=== PATIENT | male | born 1945 | race Caucasian/White ===

== ENCOUNTER 2020-09-16 08:29 | Inpatient (IN) ==
[2020-09-16] MEDS ORDERED: Azithromycin 500 MG in D5% in Water 250 ML IVPB ONE (08:57)
[2020-09-16] MEDS ORDERED: methylPREDNISolone 125 MG/2 ML VIAL IVP ONE (08:57)
[2020-09-16] MEDS ORDERED: 0.9 % Sodium Chloride 1,000 ML IVC SCH (09:00)
[2020-09-16 09:33] LABS: Basophils # 0.1 K/mcL (0.0-0.2); Basophils % 0.6 %; Eosinophils % 0.4 %; Hemoglobin 13.4 g/dL (12.9-16.9); Immature Granulocytes % 0.8 % (0-4); Lymphocytes # 1.6 K/mcL (0.6-4.6); Lymphocytes % 15.6 %; Mean Corpuscular HGB Conc 36.2 g/dL (31.6-35.5); Mean Corpuscular Hemoglobin 33.3 pg (28.0-33.3); Mean Platelet Volume 8.5 fL (9.4-12.4); Monocytes % 9.6 %; Neutrophils # 7.6 K/mcL (1.6-8.9); Platelet Count 197 K/mcL (140-400); Red Blood Count 4.02 M/mcL (4.19-5.50); White Blood Count 10.4 K/mcL (4.3-11.1)
[2020-09-16 09:43] LABS: INR 1.2; Prothrombin Time 14.2 Seconds (9.4-12.1)
[2020-09-16 09:46] LABS: Activated Partial Thrombo Time 34.1 Seconds (26.0-36.0)
[2020-09-16] MEDS ORDERED: Ipratropium/Albuterol Neb 3 ML IH ONE ×3 (09:49→13:11)
[2020-09-16 09:53] LABS: Troponin I < 0.03 ng/mL (< 0.04)
[2020-09-16 09:55] LABS: Alanine Aminotransferase 21 Units/L (7-52); Albumin 3.9 g/dL (3.5-5.7); Albumin/Globulin Ratio 1.6 (1.1-2.2); Alkaline Phosphatase 59 Units/L (34-104); Aspartate Amino Transferase 31 Units/L (13-39); BUN/Creatinine Ratio 23 (6-26); Bilirubin,Total 1.3 mg/dL (0.3-1.0); Blood Urea Nitrogen 14 mg/dL (8-23); Calcium 8.6 mg/dL (8.6-10.3); Carbon Dioxide 28 mEq/L (23-29); Chloride 80 mEq/L (98-107); Globulin 2.5 g/dL (2.4-3.5); Glucose 127 mg/dL (70-105); Osmolality,Calculated 250 (280-300); Potassium 4.5 mEq/L (3.5-5.1); Sodium 119 mEq/L (136-145); Total Protein 6.4 g/dL (6.4-8.9); eGFR For African Americans > 60 (> 60); eGFR For Non-African Americans > 60 (> 60)
[2020-09-16] MEDS ORDERED: Furosemide 40 MG/4 ML VIAL IVP ONE (09:59)
[2020-09-16] MEDS ORDERED: Naloxone 0.4 MG/ML INJ IVP PRN (10:44)
[2020-09-16] MEDS ORDERED: Ondansetron 4 MG/2 ML VIAL IVP PRN (10:44)
[2020-09-16] MEDS ORDERED: Fluticasone Propionate Nasal 50 MCG/SPRAY BOTTLE NS PRN (10:50)
[2020-09-16] MEDS ORDERED: Perflutren Lipid Microsphere 1.3 ML in 0.9 % Sodium Chloride 8.7 ML IVP PRN (10:51)
[2020-09-16] MEDS ORDERED: Nitroglycerin 0.4 MG TAB.SUBL SL PRN (10:51)
[2020-09-16] MEDS: MethylPREDNISolone 40 MG/ML VIAL IVP SCH ×2 (15:24→17:18)
[2020-09-16] MEDS: Ipratropium/Albuterol Neb 3 ML IH SCH ×2 (15:50→20:38)
[2020-09-16] MEDS: Furosemide 20 MG/2 ML VIAL IVP SCH (20:36)
[2020-09-16] MEDS: *HR* Dabigatran 75 MG CAPSULE PO SCH (20:36)
[2020-09-16] MEDS: Budesonide/Formoterol 160/4.5 1 PUFF INH IH SCH (20:39)
[2020-09-16] MEDS ORDERED: Furosemide 40 MG/4 ML VIAL IVP SCH (21:00)
[2020-09-17] MEDS: Ipratropium/Albuterol Neb 3 ML IH SCH ×6 (00:22→20:05)
[2020-09-17] MEDS: MethylPREDNISolone 40 MG/ML VIAL IVP SCH ×3 (02:05→13:04)
[2020-09-17 03:10] LABS: Hematocrit 35.9 % (37.5-50.1); Mean Corpuscular HGB Conc 36.2 g/dL (31.6-35.5); Mean Corpuscular Hemoglobin 33.3 pg (28.0-33.3); Mean Corpuscular Volume 92.1 fL (83.0-100.0); Mean Platelet Volume 8.4 fL (9.4-12.4); Platelet Count 178 K/mcL (140-400)
[2020-09-17] MEDS ORDERED: *HR* Metoprolol 5 MG/5 ML VIAL IVP ONE (05:42)
[2020-09-17 06:26] LABS: Alanine Aminotransferase 19 Units/L (7-52); Albumin 3.7 g/dL (3.5-5.7); Albumin/Globulin Ratio 1.5 (1.1-2.2); Alkaline Phosphatase 54 Units/L (34-104); Aspartate Amino Transferase 24 Units/L (13-39); BUN/Creatinine Ratio 22 (6-26); Bilirubin,Total 0.7 mg/dL (0.3-1.0); Blood Urea Nitrogen 16 mg/dL (8-23); Calcium 8.6 mg/dL (8.6-10.3); Carbon Dioxide 35 mEq/L (23-29); Chloride 86 mEq/L (98-107); Chol/HDL Ratio 1.6 (0-4.9); Cholesterol 118 mg/dL (< 200); Globulin 2.4 g/dL (2.4-3.5); Glucose 214 mg/dL (70-105); HDL Cholesterol 75 mg/dL (40-59); LDL Cholesterol,Calculated 35 mg/dL (< 100); Magnesium 1.6 mg/dL (1.6-2.6); Osmolality,Calculated 272 (280-300); Potassium 3.8 mEq/L (3.5-5.1); Sodium 127 mEq/L (136-145); Total Protein 6.1 g/dL (6.4-8.9); Triglycerides 40 mg/dL (< 150); eGFR For African Americans > 60 (> 60); eGFR For Non-African Americans > 60 (> 60)
[2020-09-17] MEDS: Budesonide/Formoterol 160/4.5 1 PUFF INH IH SCH ×2 (08:58→20:05)
[2020-09-17] MEDS: DilTIAZem CD (24hr) 240 MG CAP.ER.24H PO SCH (09:15)
[2020-09-17] MEDS: *HR* Dabigatran 75 MG CAPSULE PO SCH ×2 (09:15→20:48)
[2020-09-17] MEDS: Aspirin Enteric Coated 81 MG Tablet PO SCH (09:16)
[2020-09-17] MEDS: Metoprolol XL (24 HR) Succ 50 MG TAB.ER.24H PO SCH (09:16)
[2020-09-17] MEDS: Furosemide 20 MG/2 ML VIAL IVP SCH ×3 (09:16→21:13)
[2020-09-17] MEDS: Azithromycin 250 MG TABLET PO SCH (15:30)
[2020-09-17] MEDS: cefTRIAXone 1,000 MG in Water for inj. (sterile) 10 ML IVP SCH (15:30)
[2020-09-17] MEDS ORDERED: MethylPREDNISolone 40 MG/ML VIAL IVP SCH (16:00)
[2020-09-17 18:36] LABS: Adenovirus Not Detected (Not Detect); Bordetella Pertussis Not Detected (Not Detect); Chlamydophila pneumoniae Not Detected (Not Detect); Coronavirus 229E Not Detected (Not Detect); Coronavirus HKU1 Not Detected (Not Detect); Coronavirus NL63 Not Detected (Not Detect); Coronavirus OC43 Not Detected (Not Detect); Human Metapneumovirus Not Detected (Not Detect); Human Rhinovirus/Enterovirus Not Detected (Not Detect); Influenza A Subtype 2009 H1 Not Detected (Not Detect); Influenza B Not Detected (Not Detect); Mycoplasma pneumoniae Not Detected (Not Detect); Parainfluenza Virus 1 Not Detected (Not Detect); Parainfluenza Virus 2 Not Detected (Not Detect); Parainfluenza Virus 3 Not Detected (Not Detect); Parainfluenza Virus 4 Not Detected (Not Detect); Respiratory Syncytial Virus Not Detected (Not Detect); SARS-CoV-2 Not Detected (Not Detect)
[2020-09-18] MEDS: Ipratropium/Albuterol Neb 3 ML IH SCH ×6 (00:18→20:24)
[2020-09-18] MEDS: MethylPREDNISolone 40 MG/ML VIAL IVP SCH ×3 (01:16→17:03)
[2020-09-18 06:27] LABS: Hematocrit 35.8 % (37.5-50.1); Hemoglobin 12.3 g/dL (12.9-16.9); Mean Corpuscular HGB Conc 34.4 g/dL (31.6-35.5); Mean Corpuscular Hemoglobin 32.7 pg (28.0-33.3); Mean Corpuscular Volume 95.2 fL (83.0-100.0); Mean Platelet Volume 8.7 fL (9.4-12.4); Platelet Count 196 K/mcL (140-400); Red Blood Count 3.76 M/mcL (4.19-5.50); Red Cell Distribution Width 15.3 % (11.5-14.5); White Blood Count 10.4 K/mcL (4.3-11.1)
[2020-09-18 07:29] LABS: BUN/Creatinine Ratio 32 (6-26); Blood Urea Nitrogen 23 mg/dL (8-23); Calcium 8.6 mg/dL (8.6-10.3); Carbon Dioxide 33 mEq/L (23-29); Chloride 90 mEq/L (98-107); Glucose 205 mg/dL (70-105); Magnesium 1.7 mg/dL (1.6-2.6); Osmolality,Calculated 280 (280-300); Potassium 3.8 mEq/L (3.5-5.1); Sodium 130 mEq/L (136-145); eGFR For African Americans > 60 (> 60); eGFR For Non-African Americans > 60 (> 60)
[2020-09-18] MEDS: Budesonide/Formoterol 160/4.5 1 PUFF INH IH SCH ×2 (08:26→20:24)
[2020-09-18] MEDS: DilTIAZem CD (24hr) 240 MG CAP.ER.24H PO SCH (08:41)
[2020-09-18] MEDS: *HR* Dabigatran 75 MG CAPSULE PO SCH ×2 (08:41→22:21)
[2020-09-18] MEDS: Azithromycin 250 MG TABLET PO SCH (08:41)
[2020-09-18] MEDS: Aspirin Enteric Coated 81 MG Tablet PO SCH (08:41)
[2020-09-18] MEDS: Metoprolol XL (24 HR) Succ 50 MG TAB.ER.24H PO SCH (08:41)
[2020-09-18] MEDS: cefTRIAXone 1,000 MG in Water for inj. (sterile) 10 ML IVP SCH (09:29)
[2020-09-18] MEDS: Furosemide 20 MG/2 ML VIAL IVP SCH (09:29)
[2020-09-18] MEDS: Furosemide 20 MG TABLET PO SCH (16:55)
[2020-09-18] MEDS: Melatonin 3 MG TABLET PO PRN (22:21)
[2020-09-19] MEDS: Ipratropium/Albuterol Neb 3 ML IH SCH ×7 (00:15→23:42)
[2020-09-19] MEDS: MethylPREDNISolone 40 MG/ML VIAL IVP SCH ×2 (00:26→14:32)
[2020-09-19 06:33] LABS: Hematocrit 34.9 % (37.5-50.1); Hemoglobin 11.9 g/dL (12.9-16.9); Mean Corpuscular HGB Conc 34.1 g/dL (31.6-35.5); Mean Corpuscular Hemoglobin 33.1 pg (28.0-33.3); Mean Corpuscular Volume 97.2 fL (83.0-100.0); Mean Platelet Volume 8.6 fL (9.4-12.4); Platelet Count 207 K/mcL (140-400); Red Blood Count 3.59 M/mcL (4.19-5.50); Red Cell Distribution Width 15.3 % (11.5-14.5); White Blood Count 8.7 K/mcL (4.3-11.1)
[2020-09-19 07:02] LABS: Alanine Aminotransferase 58 Units/L (7-52); Albumin 3.8 g/dL (3.5-5.7); Albumin/Globulin Ratio 1.7 (1.1-2.2); Alkaline Phosphatase 40 Units/L (34-104); Aspartate Amino Transferase 56 Units/L (13-39); BUN/Creatinine Ratio 29 (6-26); Bilirubin,Total 0.5 mg/dL (0.3-1.0); Blood Urea Nitrogen 25 mg/dL (8-23); Calcium 8.6 mg/dL (8.6-10.3); Carbon Dioxide 34 mEq/L (23-29); Chloride 92 mEq/L (98-107); Globulin 2.3 g/dL (2.4-3.5); Glucose 251 mg/dL (70-105); Osmolality,Calculated 287 (280-300); Potassium 4.3 mEq/L (3.5-5.1); Sodium 132 mEq/L (136-145); Total Protein 6.1 g/dL (6.4-8.9); eGFR For African Americans > 60 (> 60); eGFR For Non-African Americans > 60 (> 60)
[2020-09-19] MEDS: Budesonide/Formoterol 160/4.5 1 PUFF INH IH SCH ×2 (09:54→20:02)
[2020-09-19] MEDS: *HR* Dabigatran 75 MG CAPSULE PO SCH ×2 (10:19→21:24)
[2020-09-19] MEDS: Azithromycin 250 MG TABLET PO SCH (10:20)
[2020-09-19] MEDS: Aspirin Enteric Coated 81 MG Tablet PO SCH (10:20)
[2020-09-19] MEDS: Furosemide 20 MG TABLET PO SCH ×2 (10:20→17:36)
[2020-09-19] MEDS: DilTIAZem CD (24hr) 240 MG CAP.ER.24H PO SCH (10:20)
[2020-09-19] MEDS: cefTRIAXone 1,000 MG in Water for inj. (sterile) 10 ML IVP SCH (10:20)
[2020-09-19] MEDS: Metoprolol XL (24 HR) Succ 50 MG TAB.ER.24H PO SCH (10:20)
[2020-09-19] MEDS: Melatonin 3 MG TABLET PO PRN (21:25)
[2020-09-20] MEDS: MethylPREDNISolone 40 MG/ML VIAL IVP SCH ×2 (02:03→13:42)
[2020-09-20] MEDS: Ipratropium/Albuterol Neb 3 ML IH SCH ×3 (03:41→11:03)
[2020-09-20 07:02] VITALS: BP 139/94
[2020-09-20] MEDS: Budesonide/Formoterol 160/4.5 1 PUFF INH IH SCH (07:45)
[2020-09-20] MEDS: *HR* Dabigatran 75 MG CAPSULE PO SCH (09:16)
[2020-09-20] MEDS: DilTIAZem CD (24hr) 240 MG CAP.ER.24H PO SCH (09:16)
[2020-09-20] MEDS: Aspirin Enteric Coated 81 MG Tablet PO SCH (09:17)
[2020-09-20] MEDS: Furosemide 20 MG TABLET PO SCH (09:17)
[2020-09-20] MEDS: Metoprolol XL (24 HR) Succ 50 MG TAB.ER.24H PO SCH (09:17)
[2020-09-20] MEDS: Azithromycin 250 MG TABLET PO SCH (09:17)
[2020-09-20] MEDS: cefTRIAXone 1,000 MG in Water for inj. (sterile) 10 ML IVP SCH (09:20)
[2020-09-21 11:46] LABS: ABG Base Excess 8 mEq/L (-2 to 3); ABG HCO3 35 mEq/L (21-27); ABG Oxygen Saturation 89 % (95-98); ABG PCO2 57 mmHg (35-45); ABG PH 7.39 pH Units (7.32-7.45); ABG PO2 58 mmHg (85-104); ABG TCO2 36 mEq/L (20-26)
== END 2020-09-20 14:37 | disposition other institution (70) | DRG 291 ==
LOC: EMEROOPIK 08:29 → INPPIK 08:29
PROVIDERS: ADMIT Family Medicine; ATTEND Family Medicine

== ENCOUNTER 2020-09-19 18:34 | Inpatient (IN) ==
[2020-09-20] MEDS ORDERED: NON-FORMULARY MEDICATION 1 EACH EACH (Ipratropium/Albuterol Sulfate 120 PUFF Inhaler) IH PRN (14:09)
[2020-09-20] MEDS ORDERED: MethylPREDNISolone 40 MG/ML VIAL IVP SCH (14:15)
[2020-09-20] MEDS: Ipratropium/Albuterol Neb 3 ML IH SCH ×3 (15:07→23:42)
[2020-09-20] MEDS: Budesonide/Formoterol 160/4.5 1 PUFF INH IH SCH (19:42)
[2020-09-20] MEDS: *HR* Dabigatran 75 MG CAPSULE PO SCH (21:56)
[2020-09-21] MEDS: MethylPREDNISolone 40 MG/ML VIAL IVP SCH ×2 (00:22→13:03)
[2020-09-21] MEDS: Ipratropium/Albuterol Neb 3 ML IH SCH ×5 (04:25→20:12)
[2020-09-21 07:40] LABS: Basophils % 0.5 %; Eosinophils % 0.3 %; Hematocrit 39.1 % (37.5-50.1); Hemoglobin 13.2 g/dL (12.9-16.9); Immature Granulocytes % 2.1 % (0-4); Lymphocytes # 0.8 K/mcL (0.6-4.6); Lymphocytes % 9.5 %; Mean Corpuscular HGB Conc 33.8 g/dL (31.6-35.5); Mean Corpuscular Hemoglobin 32.8 pg (28.0-33.3); Mean Corpuscular Volume 97.3 fL (83.0-100.0); Mean Platelet Volume 8.7 fL (9.4-12.4); Monocytes # 0.5 K/mcL (0.0-1.3); Monocytes % 5.6 %; Neutrophils # 6.5 K/mcL (1.6-8.9); Platelet Count 208 K/mcL (140-400); Red Blood Count 4.02 M/mcL (4.19-5.50); Red Cell Distribution Width 14.6 % (11.5-14.5)
[2020-09-21] MEDS: Budesonide/Formoterol 160/4.5 1 PUFF INH IH SCH ×2 (07:48→20:45)
[2020-09-21 07:59] LABS: BUN/Creatinine Ratio 36 (6-26); Blood Urea Nitrogen 27 mg/dL (8-23); Calcium 8.7 mg/dL (8.6-10.3); Carbon Dioxide 35 mEq/L (23-29); Chloride 90 mEq/L (98-107); Glucose 261 mg/dL (70-105); Osmolality,Calculated 284 (280-300); Sodium 130 mEq/L (136-145); eGFR For African Americans > 60 (> 60); eGFR For Non-African Americans > 60 (> 60)
[2020-09-21] MEDS: cefTRIAXone 1,000 MG in Water for inj. (sterile) 10 ML IVP SCH (08:40)
[2020-09-21] MEDS: Metoprolol XL (24 HR) Succ 50 MG TAB.ER.24H PO SCH (08:41)
[2020-09-21] MEDS: Furosemide 40 MG TABLET PO SCH (08:41)
[2020-09-21] MEDS: Azithromycin 250 MG TABLET PO SCH (08:41)
[2020-09-21] MEDS: Aspirin Enteric Coated 81 MG Tablet PO SCH (08:41)
[2020-09-21] MEDS: *HR* Dabigatran 75 MG CAPSULE PO SCH ×2 (08:41→20:51)
[2020-09-21] MEDS: DilTIAZem CD (24hr) 240 MG CAP.ER.24H PO SCH (08:41)
[2020-09-21] MEDS ORDERED: CefTRIAXone 1,000 MG VIAL IVP SCH (09:00)
[2020-09-22] MEDS: Ipratropium/Albuterol Neb 3 ML IH SCH ×7 (00:16→23:36)
[2020-09-22] MEDS: MethylPREDNISolone 40 MG/ML VIAL IVP SCH (00:42)
[2020-09-22] MEDS ORDERED: predniSONE 20 MG TABLET PO SCH (09:00)
[2020-09-22] MEDS: Azithromycin 250 MG TABLET PO SCH (10:33)
[2020-09-22] MEDS: Metoprolol XL (24 HR) Succ 50 MG TAB.ER.24H PO SCH (10:34)
[2020-09-22] MEDS: DilTIAZem CD (24hr) 240 MG CAP.ER.24H PO SCH (10:34)
[2020-09-22] MEDS: Aspirin Enteric Coated 81 MG Tablet PO SCH (10:34)
[2020-09-22] MEDS: Furosemide 40 MG TABLET PO SCH (10:34)
[2020-09-22] MEDS: *HR* Dabigatran 75 MG CAPSULE PO SCH ×2 (10:34→21:14)
[2020-09-22] MEDS: Budesonide/Formoterol 160/4.5 1 PUFF INH IH SCH ×2 (10:52→20:01)
[2020-09-22] MEDS: cefTRIAXone 1,000 MG in Water for inj. (sterile) 10 ML IVP SCH (17:48)
[2020-09-22] MEDS: Fluticasone Propionate Nasal 50 MCG/SPRAY BOTTLE NS PRN (21:18)
[2020-09-23] MEDS: Ipratropium/Albuterol Neb 3 ML IH SCH ×5 (04:05→21:15)
[2020-09-23] MEDS: Budesonide/Formoterol 160/4.5 1 PUFF INH IH SCH ×2 (07:40→21:15)
[2020-09-23] MEDS: Furosemide 40 MG TABLET PO SCH (08:37)
[2020-09-23] MEDS: Metoprolol XL (24 HR) Succ 50 MG TAB.ER.24H PO SCH (08:37)
[2020-09-23] MEDS: *HR* Dabigatran 75 MG CAPSULE PO SCH ×2 (08:37→21:23)
[2020-09-23] MEDS: DilTIAZem CD (24hr) 240 MG CAP.ER.24H PO SCH (08:37)
[2020-09-23] MEDS: predniSONE 10 MG TABLET PO SCH (08:37)
[2020-09-23] MEDS: Aspirin Enteric Coated 81 MG Tablet PO SCH (08:37)
[2020-09-24] MEDS: Ipratropium/Albuterol Neb 3 ML IH SCH ×4 (03:35→21:33)
[2020-09-24] MEDS: Budesonide/Formoterol 160/4.5 1 PUFF INH IH SCH ×2 (08:14→21:33)
[2020-09-24] MEDS: Albuterol 2.5 MG/3 ML NEBULIZER IH PRN ×2 (08:14→11:22)
[2020-09-24] MEDS: Aspirin Enteric Coated 81 MG Tablet PO SCH (09:58)
[2020-09-24] MEDS: *HR* Dabigatran 75 MG CAPSULE PO SCH ×2 (09:58→20:18)
[2020-09-24] MEDS: Furosemide 40 MG TABLET PO SCH (09:58)
[2020-09-24] MEDS: DilTIAZem CD (24hr) 240 MG CAP.ER.24H PO SCH (09:58)
[2020-09-24] MEDS: predniSONE 10 MG TABLET PO SCH (09:59)
[2020-09-24] MEDS: Metoprolol XL (24 HR) Succ 50 MG TAB.ER.24H PO SCH (09:59)
[2020-09-25] MEDS: Albuterol 2.5 MG/3 ML NEBULIZER IH PRN ×2 (01:23→20:01)
[2020-09-25] MEDS: Ipratropium/Albuterol Neb 3 ML IH SCH ×4 (04:33→21:54)
[2020-09-25] MEDS: Budesonide/Formoterol 160/4.5 1 PUFF INH IH SCH ×2 (09:08→21:54)
[2020-09-25] MEDS: Aspirin Enteric Coated 81 MG Tablet PO SCH (10:22)
[2020-09-25] MEDS: *HR* Dabigatran 75 MG CAPSULE PO SCH ×2 (10:22→19:53)
[2020-09-25] MEDS: Furosemide 40 MG TABLET PO SCH (10:23)
[2020-09-25] MEDS: predniSONE 20 MG TABLET PO SCH (10:23)
[2020-09-25] MEDS: DilTIAZem CD (24hr) 240 MG CAP.ER.24H PO SCH (10:23)
[2020-09-25] MEDS: Metoprolol XL (24 HR) Succ 50 MG TAB.ER.24H PO SCH (10:23)
[2020-09-25 12:03] LABS: ABG Base Excess 9 mEq/L (-2 to 3); ABG HCO3 35 mEq/L (21-27); ABG Oxygen Saturation 95 % (95-98); ABG PCO2 52 mmHg (35-45); ABG PH 7.44 pH Units (7.32-7.45); ABG PO2 73 mmHg (85-104); ABG TCO2 37 mEq/L (20-26); Blood Gas Modality NIV; Blood Gas Pressure Support 14 cm H2O
[2020-09-26] MEDS: Ipratropium/Albuterol Neb 3 ML IH SCH ×4 (04:20→21:28)
[2020-09-26] MEDS: *HR* Dabigatran 75 MG CAPSULE PO SCH ×2 (10:15→20:29)
[2020-09-26] MEDS: Aspirin Enteric Coated 81 MG Tablet PO SCH (10:15)
[2020-09-26] MEDS: DilTIAZem CD (24hr) 240 MG CAP.ER.24H PO SCH (10:15)
[2020-09-26] MEDS: predniSONE 20 MG TABLET PO SCH (10:15)
[2020-09-26] MEDS: Furosemide 40 MG TABLET PO SCH (10:16)
[2020-09-26] MEDS: Metoprolol XL (24 HR) Succ 50 MG TAB.ER.24H PO SCH (10:16)
[2020-09-26] MEDS: Budesonide/Formoterol 160/4.5 1 PUFF INH IH SCH ×2 (10:16→21:28)
[2020-09-26] MEDS: Albuterol 2.5 MG/3 ML NEBULIZER IH PRN (14:25)
[2020-09-27] MEDS: Ipratropium/Albuterol Neb 3 ML IH SCH ×4 (04:34→20:56)
[2020-09-27] MEDS: Budesonide/Formoterol 160/4.5 1 PUFF INH IH SCH ×2 (09:06→20:56)
[2020-09-27] MEDS: predniSONE 10 MG TABLET PO SCH (10:16)
[2020-09-27] MEDS: DilTIAZem CD (24hr) 240 MG CAP.ER.24H PO SCH (10:16)
[2020-09-27] MEDS: Furosemide 40 MG TABLET PO SCH (10:16)
[2020-09-27] MEDS: Aspirin Enteric Coated 81 MG Tablet PO SCH (10:16)
[2020-09-27] MEDS: Metoprolol XL (24 HR) Succ 50 MG TAB.ER.24H PO SCH (10:16)
[2020-09-27] MEDS: *HR* Dabigatran 75 MG CAPSULE PO SCH ×2 (10:16→21:13)
[2020-09-27] MEDS: Fluticasone Propionate Nasal 50 MCG/SPRAY BOTTLE NS PRN (21:13)
[2020-09-28] MEDS: Ipratropium/Albuterol Neb 3 ML IH SCH ×2 (03:30→10:18)
[2020-09-28 07:35] VITALS: BP 139/86
[2020-09-28] MEDS: *HR* Dabigatran 75 MG CAPSULE PO SCH (10:08)
[2020-09-28] MEDS: Aspirin Enteric Coated 81 MG Tablet PO SCH (10:08)
[2020-09-28] MEDS: Furosemide 40 MG TABLET PO SCH (10:08)
[2020-09-28] MEDS: Metoprolol XL (24 HR) Succ 50 MG TAB.ER.24H PO SCH (10:08)
[2020-09-28] MEDS: DilTIAZem CD (24hr) 240 MG CAP.ER.24H PO SCH (10:08)
[2020-09-28] MEDS: predniSONE 10 MG TABLET PO SCH (10:17)
[2020-09-28] MEDS: Budesonide/Formoterol 160/4.5 1 PUFF INH IH SCH (10:18)
== END 2020-09-28 12:15 | disposition home health service (06) | DRG 945 ==
LOC: INPPIK 09-20 14:46
PROVIDERS: ADMIT Family Medicine; ATTEND Family Medicine

== ENCOUNTER 2020-10-30 02:51 | Inpatient (IN) ==
[2020-10-30] MEDS ORDERED: Ipratropium/Albuterol Neb 3 ML IH ONE (02:56)
[2020-10-30] MEDS ORDERED: methylPREDNISolone 125 MG/2 ML VIAL IVP ONE (02:56)
[2020-10-30] MEDS ORDERED: 0.9 % Sodium Chloride 1,000 ML IVC ONE (02:56)
[2020-10-30 03:26] LABS: Basophils # 0.1 K/mcL (0.0-0.2); Basophils % 0.9 %; Eosinophils # 0.1 K/mcL (0.0-0.6); Eosinophils % 0.5 %; Hematocrit 42.7 % (37.5-50.1); Hemoglobin 14.4 g/dL (12.9-16.9); Lymphocytes # 4.1 K/mcL (0.6-4.6); Lymphocytes % 27.4 %; Mean Corpuscular HGB Conc 33.7 g/dL (31.6-35.5); Mean Corpuscular Hemoglobin 31.8 pg (28.0-33.3); Mean Corpuscular Volume 94.3 fL (83.0-100.0); Mean Platelet Volume 8.9 fL (9.4-12.4); Monocytes # 0.8 K/mcL (0.0-1.3); Monocytes % 5.4 %; Neutrophils # 9.8 K/mcL (1.6-8.9); Platelet Count 291 K/mcL (140-400); Red Blood Count 4.53 M/mcL (4.19-5.50); Red Cell Distribution Width 13.5 % (11.5-14.5); Segmented Neutrophils % 64.8 %; White Blood Count 15.1 K/mcL (4.3-11.1)
[2020-10-30 04:12] LABS: BUN/Creatinine Ratio 9 (6-26); Blood Urea Nitrogen 11 mg/dL (8-23); Calcium 9.4 mg/dL (8.6-10.3); Carbon Dioxide 28 mEq/L (23-29); Chloride 94 mEq/L (98-107); Glucose 134 mg/dL (70-105); Osmolality,Calculated 277 (280-300); Potassium 5.2 mEq/L (3.5-5.1); Sodium 133 mEq/L (136-145); eGFR For African Americans > 60 (> 60); eGFR For Non-African Americans 55 (> 60)
[2020-10-30] MEDS ORDERED: Isovue-370 500 ML BOTTLE IVP ONE (05:54)
[2020-10-30] MEDS ORDERED: levoFLOXacin 750 MG/150 ML 750 MG/150 ML BAG IVPB ONE (07:09)
[2020-10-30] MEDS ORDERED: Furosemide 40 MG/4 ML VIAL IVP ONE (07:16)
[2020-10-30] MEDS ORDERED: Piperacillin/Tazobactam 3.375 GM in Water for inj. (sterile) 20 ML IVP ONE (07:27)
[2020-10-30 07:38] LABS: ABG Base Excess -1 mEq/L (-2 to 3); ABG HCO3 26 mEq/L (21-27); ABG Oxygen Saturation 94 % (95-98); ABG PCO2 50 mmHg (35-45); ABG PH 7.32 pH Units (7.32-7.45); ABG PO2 79 mmHg (85-104); ABG TCO2 27 mEq/L (20-26)
[2020-10-30] MEDS ORDERED: MOM Conc 10 ML UD.LIQ PO PRN (07:59)
[2020-10-30] MEDS ORDERED: Mag Hydrox/Al Hydrox/Simeth 30 ML UDC PO PRN (07:59)
[2020-10-30] MEDS ORDERED: Naloxone 0.4 MG/ML INJ IVP PRN (07:59)
[2020-10-30] MEDS ORDERED: Ondansetron 4 MG/2 ML VIAL IVP PRN (07:59)
[2020-10-30] MEDS ORDERED: Fluticasone Propionate Nasal 50 MCG/SPRAY BOTTLE NS PRN (08:08)
[2020-10-30] MEDS ORDERED: DilTIAZem CD (24hr) 240 MG CAP.ER.24H PO SCH (09:00)
[2020-10-30] MEDS ORDERED: Metoprolol XL (24 HR) Succ 50 MG TAB.ER.24H PO SCH (09:00)
[2020-10-30] MEDS: Aspirin Enteric Coated 81 MG Tablet PO SCH (10:17)
[2020-10-30] MEDS: *HR* Dabigatran 75 MG CAPSULE PO SCH ×2 (10:17→19:50)
[2020-10-30] MEDS: Furosemide 20 MG/2 ML VIAL IVP SCH ×2 (10:17→19:56)
[2020-10-30] MEDS: Budesonide/Formoterol 160/4.5 1 PUFF INH IH SCH ×2 (10:28→20:06)
[2020-10-30] MEDS: Ipratropium/Albuterol Neb 3 ML IH SCH ×3 (12:25→20:06)
[2020-10-30] MEDS ORDERED: *HR* LORazepam 2 MG/ML VIAL IVP PRN ×2 (13:56)
[2020-10-30] MEDS: Piperacillin/Tazobactam 3.375 GM in 0.9 % Sodium Chloride Mini Bag 100 ML IVPB SCH (17:15)
[2020-10-30] MEDS: MethylPREDNISolone 40 MG/ML VIAL IVP SCH (17:16)
[2020-10-31] MEDS: MethylPREDNISolone 40 MG/ML VIAL IVP SCH ×3 (00:02→16:25)
[2020-10-31] MEDS: Piperacillin/Tazobactam 3.375 GM in 0.9 % Sodium Chloride Mini Bag 100 ML IVPB SCH ×3 (00:03→16:27)
[2020-10-31] MEDS: Ipratropium/Albuterol Neb 3 ML IH SCH ×6 (00:15→21:00)
[2020-10-31 04:38] LABS: Basophils % 0.1 %; Hematocrit 35.1 % (37.5-50.1); Hemoglobin 12.2 g/dL (12.9-16.9); Immature Granulocytes % 0.6 % (0-4); Lymphocytes # 1.4 K/mcL (0.6-4.6); Mean Corpuscular HGB Conc 34.8 g/dL (31.6-35.5); Mean Corpuscular Hemoglobin 31.8 pg (28.0-33.3); Mean Corpuscular Volume 91.4 fL (83.0-100.0); Mean Platelet Volume 8.8 fL (9.4-12.4); Monocytes # 0.2 K/mcL (0.0-1.3); Monocytes % 2.4 %; Neutrophils # 6.2 K/mcL (1.6-8.9); Platelet Count 215 K/mcL (140-400); Red Blood Count 3.84 M/mcL (4.19-5.50); Red Cell Distribution Width 13.1 % (11.5-14.5); Segmented Neutrophils % 78.9 %; White Blood Count 7.9 K/mcL (4.3-11.1)
[2020-10-31 07:49] LABS: BUN/Creatinine Ratio 26 (6-26); Blood Urea Nitrogen 22 mg/dL (8-23); Calcium 8.8 mg/dL (8.6-10.3); Carbon Dioxide 30 mEq/L (23-29); Chloride 94 mEq/L (98-107); Glucose 209 mg/dL (70-105); Osmolality,Calculated 287 (280-300); Sodium 134 mEq/L (136-145); eGFR For African Americans > 60 (> 60); eGFR For Non-African Americans > 60 (> 60)
[2020-10-31] MEDS: Budesonide/Formoterol 160/4.5 1 PUFF INH IH SCH ×2 (08:20→21:00)
[2020-10-31] MEDS: Metoprolol XL (24 HR) Succ 50 MG TAB.ER.24H PO SCH (08:49)
[2020-10-31] MEDS: *HR* Dabigatran 75 MG CAPSULE PO SCH ×2 (08:49→22:02)
[2020-10-31] MEDS: Aspirin Enteric Coated 81 MG Tablet PO SCH (08:50)
[2020-10-31] MEDS: Furosemide 20 MG/2 ML VIAL IVP SCH ×2 (08:50→22:02)
[2020-10-31] MEDS: Acetaminophen 325 MG TABLET PO PRN (16:34)
[2020-11-01] MEDS: MethylPREDNISolone 40 MG/ML VIAL IVP SCH ×3 (00:26→16:34)
[2020-11-01] MEDS: Piperacillin/Tazobactam 3.375 GM in 0.9 % Sodium Chloride Mini Bag 100 ML IVPB SCH ×3 (00:27→16:34)
[2020-11-01] MEDS: Ipratropium/Albuterol Neb 3 ML IH SCH ×4 (01:52→12:58)
[2020-11-01] MEDS: Budesonide/Formoterol 160/4.5 1 PUFF INH IH SCH ×2 (07:43→21:58)
[2020-11-01] MEDS: Furosemide 20 MG/2 ML VIAL IVP SCH ×2 (07:53→21:00)
[2020-11-01] MEDS: Metoprolol XL (24 HR) Succ 50 MG TAB.ER.24H PO SCH (07:54)
[2020-11-01] MEDS: *HR* Dabigatran 75 MG CAPSULE PO SCH ×2 (07:54→20:50)
[2020-11-01] MEDS: Aspirin Enteric Coated 81 MG Tablet PO SCH (07:54)
[2020-11-01] MEDS ORDERED: *HR* Dextrose 50 % in Water (Vial) 50 ML VIAL IVP PRN (18:02)
[2020-11-01] MEDS ORDERED: Dextrose Gel 15 GM/37.5 ML TUBE PO PRN ×2 (18:02)
[2020-11-01] MEDS ORDERED: D5% in Water 1,000 ML IVC PRN (18:02)
[2020-11-01] MEDS: Insulin LISPRO 300 UNITS/3 ML VIAL SUBQ SCH ×2 (18:16→20:52)
[2020-11-01] MEDS: Ipratropium/Albuterol Neb 3 ML IH PRN ×2 (18:39→21:58)
[2020-11-02] MEDS ORDERED: 0.9 % Sodium Chloride Mini Bag 100 ML ONE (00:35)
[2020-11-02] MEDS: MethylPREDNISolone 40 MG/ML VIAL IVP SCH ×3 (00:42→17:38)
[2020-11-02] MEDS: Piperacillin/Tazobactam 3.375 GM in 0.9 % Sodium Chloride Mini Bag 100 ML IVPB SCH ×4 (00:42→17:39)
[2020-11-02] MEDS: Ipratropium/Albuterol Neb 3 ML IH PRN ×5 (02:36→20:03)
[2020-11-02] MEDS: Budesonide/Formoterol 160/4.5 1 PUFF INH IH SCH ×2 (07:38→20:06)
[2020-11-02 07:43] LABS: Hematocrit 36.1 % (37.5-50.1); Hemoglobin 12.5 g/dL (12.9-16.9); Mean Corpuscular HGB Conc 34.6 g/dL (31.6-35.5); Mean Corpuscular Hemoglobin 31.7 pg (28.0-33.3); Mean Corpuscular Volume 91.6 fL (83.0-100.0); Mean Platelet Volume 9.1 fL (9.4-12.4); Platelet Count 220 K/mcL (140-400); Red Blood Count 3.94 M/mcL (4.19-5.50); Red Cell Distribution Width 12.9 % (11.5-14.5); White Blood Count 10.2 K/mcL (4.3-11.1)
[2020-11-02 08:04] LABS: BUN/Creatinine Ratio 39 (6-26); Blood Urea Nitrogen 22 mg/dL (8-23); Calcium 8.3 mg/dL (8.6-10.3); Carbon Dioxide 34 mEq/L (23-29); Chloride 94 mEq/L (98-107); Glucose 174 mg/dL (70-105); Osmolality,Calculated 286 (280-300); Potassium 3.6 mEq/L (3.5-5.1); Sodium 134 mEq/L (136-145); eGFR For African Americans > 60 (> 60); eGFR For Non-African Americans > 60 (> 60)
[2020-11-02] MEDS ORDERED: Furosemide 20 MG/2 ML VIAL IVP SCH (08:15)
[2020-11-02] MEDS: Metoprolol XL (24 HR) Succ 50 MG TAB.ER.24H PO SCH (08:49)
[2020-11-02] MEDS: *HR* Dabigatran 75 MG CAPSULE PO SCH ×2 (08:49→22:15)
[2020-11-02] MEDS: Acetaminophen 325 MG TABLET PO PRN (08:49)
[2020-11-02] MEDS: Aspirin Enteric Coated 81 MG Tablet PO SCH (08:49)
[2020-11-02] MEDS: Insulin LISPRO 300 UNITS/3 ML VIAL SUBQ SCH ×4 (08:51→22:42)
[2020-11-03] MEDS: Piperacillin/Tazobactam 3.375 GM in 0.9 % Sodium Chloride Mini Bag 100 ML IVPB SCH ×3 (00:10→15:34)
[2020-11-03] MEDS: MethylPREDNISolone 40 MG/ML VIAL IVP SCH ×3 (00:22→15:31)
[2020-11-03] MEDS: Ipratropium/Albuterol Neb 3 ML IH PRN ×5 (01:11→17:20)
[2020-11-03] MEDS: Budesonide/Formoterol 160/4.5 1 PUFF INH IH SCH (08:02)
[2020-11-03] MEDS ORDERED: Furosemide 40 MG TABLET PO SCH (09:00)
[2020-11-03] MEDS: Metoprolol XL (24 HR) Succ 50 MG TAB.ER.24H PO SCH (09:07)
[2020-11-03] MEDS: *HR* Dabigatran 75 MG CAPSULE PO SCH (09:07)
[2020-11-03] MEDS: Aspirin Enteric Coated 81 MG Tablet PO SCH (09:07)
[2020-11-03] MEDS: Insulin LISPRO 300 UNITS/3 ML VIAL SUBQ SCH ×3 (09:09→17:34)
[2020-11-03 12:28] VITALS: RESP 20
[2020-11-03 16:54] VITALS: BP 138/88; PULSE 116; TEMP 97.2
[2020-11-03 18:13] VITALS: O2SAT 96
== END 2020-11-03 19:24 | disposition other institution (70) | DRG 871 ==
LOC: INPPIK 02:51 → EMEROOPIK 02:51 → INPPIK 08:11
PROVIDERS: ADMIT Family Medicine; ATTEND Family Medicine

== ENCOUNTER 2020-11-03 16:20 | Inpatient (IN) ==
[2020-11-03] MEDS ORDERED: Ondansetron ODT 4 MG TAB.RAPDIS SL PRN (16:51)
[2020-11-03] MEDS ORDERED: Fluticasone Propionate Nasal 50 MCG/SPRAY BOTTLE NS PRN (16:52)
[2020-11-03] MEDS: *HR* Dabigatran 75 MG CAPSULE PO SCH (20:27)
[2020-11-03] MEDS: Budesonide/Formoterol 160/4.5 1 PUFF INH IH SCH (21:13)
[2020-11-03] MEDS: Ipratropium/Albuterol Neb 3 ML IH PRN (21:14)
[2020-11-04] MEDS: Ipratropium/Albuterol Neb 3 ML IH PRN ×6 (02:05→23:02)
[2020-11-04 07:25] LABS: Basophils # 0.1 K/mcL (0.0-0.2); Basophils % 0.5 %; Hematocrit 42.5 % (37.5-50.1); Hemoglobin 14.1 g/dL (12.9-16.9); Immature Granulocytes % 1.6 % (0-4); Lymphocytes # 3.1 K/mcL (0.6-4.6); Lymphocytes % 21.9 %; Mean Corpuscular HGB Conc 33.2 g/dL (31.6-35.5); Mean Corpuscular Hemoglobin 31.4 pg (28.0-33.3); Mean Corpuscular Volume 94.7 fL (83.0-100.0); Mean Platelet Volume 9.3 fL (9.4-12.4); Monocytes % 8.8 %; Neutrophils # 9.5 K/mcL (1.6-8.9); Platelet Count 225 K/mcL (140-400); Red Blood Count 4.49 M/mcL (4.19-5.50); Red Cell Distribution Width 12.9 % (11.5-14.5); Segmented Neutrophils % 67.2 %; White Blood Count 14.1 K/mcL (4.3-11.1)
[2020-11-04] MEDS: Budesonide/Formoterol 160/4.5 1 PUFF INH IH SCH ×2 (07:34→20:12)
[2020-11-04 08:03] LABS: Monocytes # 1.2 K/mcL (0.0-1.3)
[2020-11-04 08:13] LABS: BUN/Creatinine Ratio 41 (6-26); Blood Urea Nitrogen 31 mg/dL (8-23); Calcium 8.6 mg/dL (8.6-10.3); Carbon Dioxide 32 mEq/L (23-29); Chloride 94 mEq/L (98-107); Glucose 189 mg/dL (70-105); Osmolality,Calculated 290 (280-300); Potassium 4.2 mEq/L (3.5-5.1); Sodium 134 mEq/L (136-145); eGFR For African Americans > 60 (> 60); eGFR For Non-African Americans > 60 (> 60)
[2020-11-04] MEDS: levoFLOXacin 750 MG TABLET PO SCH (10:49)
[2020-11-04] MEDS: Aspirin Enteric Coated 81 MG Tablet PO SCH (10:49)
[2020-11-04] MEDS: predniSONE 20 MG TABLET PO SCH (10:49)
[2020-11-04] MEDS: *HR* Dabigatran 75 MG CAPSULE PO SCH ×2 (10:49→20:52)
[2020-11-04] MEDS: Metoprolol XL (24 HR) Succ 50 MG TAB.ER.24H PO SCH (10:49)
[2020-11-04] MEDS: DilTIAZem CD (24hr) 240 MG CAP.ER.24H PO SCH (10:49)
[2020-11-04] MEDS: Furosemide 40 MG TABLET PO SCH (10:50)
[2020-11-04] MEDS: Acetaminophen 325 MG TABLET PO PRN (21:02)
[2020-11-05] MEDS: Ipratropium/Albuterol Neb 3 ML IH PRN ×4 (04:18→19:38)
[2020-11-05 06:07] LABS: Hematocrit 37.6 % (37.5-50.1); Hemoglobin 12.6 g/dL (12.9-16.9); Mean Corpuscular HGB Conc 33.5 g/dL (31.6-35.5); Mean Corpuscular Hemoglobin 31.4 pg (28.0-33.3); Mean Corpuscular Volume 93.8 fL (83.0-100.0); Mean Platelet Volume 9.2 fL (9.4-12.4); Platelet Count 211 K/mcL (140-400); Red Blood Count 4.01 M/mcL (4.19-5.50)
[2020-11-05] MEDS: Budesonide/Formoterol 160/4.5 1 PUFF INH IH SCH ×2 (08:00→19:38)
[2020-11-05 08:29] VITALS: RESP 20
[2020-11-05] MEDS: *HR* Dabigatran 75 MG CAPSULE PO SCH ×2 (08:52→20:53)
[2020-11-05] MEDS: predniSONE 20 MG TABLET PO SCH (08:53)
[2020-11-05] MEDS: Metoprolol XL (24 HR) Succ 50 MG TAB.ER.24H PO SCH (08:53)
[2020-11-05] MEDS: levoFLOXacin 750 MG TABLET PO SCH (08:53)
[2020-11-05] MEDS: DilTIAZem CD (24hr) 240 MG CAP.ER.24H PO SCH (08:53)
[2020-11-05] MEDS: Furosemide 40 MG TABLET PO SCH (08:53)
[2020-11-05] MEDS: Acetaminophen 325 MG TABLET PO PRN (08:53)
[2020-11-05] MEDS: Aspirin Enteric Coated 81 MG Tablet PO SCH (08:54)
[2020-11-05 12:18] LABS: Estimated Average Glucose 143 mg/dl; Hemoglobin A1C 6.6 %
[2020-11-05 19:21] VITALS: BP 100/73; PULSE 47; TEMP 97.5
[2020-11-05 21:11] VITALS: O2SAT 85
[2020-11-05 21:14] LABS: BUN/Creatinine Ratio 37 (6-26); Blood Urea Nitrogen 37 mg/dL (8-23); Calcium 8.7 mg/dL (8.6-10.3); Carbon Dioxide 31 mEq/L (23-29); Chloride 92 mEq/L (98-107); Glucose 284 mg/dL (70-105); Osmolality,Calculated 291 (280-300); Potassium 5.2 mEq/L (3.5-5.1); Sodium 131 mEq/L (136-145); eGFR For African Americans > 60 (> 60); eGFR For Non-African Americans > 60 (> 60)
== END 2020-11-05 22:35 | disposition short-term general hospital (02) | DRG 190 ==
LOC: INPPIK 19:01
PROVIDERS: ADMIT Family Medicine; ATTEND Family Medicine

== ENCOUNTER 2020-12-25 16:44 | Inpatient (IN) ==
[2020-12-25] MEDS ORDERED: Ipratropium/Albuterol Neb 3 ML ONE (16:50)
[2020-12-25] MEDS ORDERED: Albuterol 2.5 MG/3 ML NEBULIZER IH ONE (17:15)
[2020-12-25] MEDS ORDERED: Azithromycin 500 MG in 0.9 % Sodium Chloride 250 ML IVPB ONE (17:15)
[2020-12-25] MEDS ORDERED: cefTRIAXone 2,000 MG in Water for inj. (sterile) 10 ML IVP ONE (17:15)
[2020-12-25] MEDS ORDERED: methylPREDNISolone 125 MG/2 ML VIAL IVP ONE (17:15)
[2020-12-25 17:42] LABS: Basophils # 0.1 K/mcL (0.0-0.2); Basophils % 0.8 %; Eosinophils # 0.1 K/mcL (0.0-0.6); Eosinophils % 0.9 %; Hematocrit 37.4 % (37.5-50.1); Hemoglobin 12.8 g/dL (12.9-16.9); Immature Granulocytes % 0.5 % (0-4); Lymphocytes # 2.2 K/mcL (0.6-4.6); Lymphocytes % 16.6 %; Mean Corpuscular HGB Conc 34.2 g/dL (31.6-35.5); Mean Corpuscular Hemoglobin 30.8 pg (28.0-33.3); Mean Corpuscular Volume 90.1 fL (83.0-100.0); Mean Platelet Volume 8.6 fL (9.4-12.4); Monocytes % 7.3 %; Platelet Count 306 K/mcL (140-400); Red Blood Count 4.15 M/mcL (4.19-5.50); Red Cell Distribution Width 15.5 % (11.5-14.5); Segmented Neutrophils % 73.9 %; White Blood Count 13.3 K/mcL (4.3-11.1)
[2020-12-25 17:43] LABS: ABG Base Excess 4 mEq/L (-2 to 3); ABG HCO3 31 mEq/L (21-27); ABG Oxygen Saturation 88 % (95-98); ABG PCO2 52 mmHg (35-45); ABG PH 7.38 pH Units (7.32-7.45); ABG PO2 56 mmHg (85-104); ABG TCO2 32 mEq/L (20-26)
[2020-12-25 17:44] LABS: Neutrophils # 9.8 K/mcL (1.6-8.9)
[2020-12-25 17:53] LABS: Activated Partial Thrombo Time 50.1 Seconds (26.0-36.0)
[2020-12-25 17:54] LABS: INR 1.4; Prothrombin Time 16.3 Seconds (9.4-12.1)
[2020-12-25 17:58] LABS: Alanine Aminotransferase 11 Units/L (7-52); Albumin/Globulin Ratio 1.5 (1.1-2.2); Alkaline Phosphatase 76 Units/L (34-104); Aspartate Amino Transferase 13 Units/L (13-39); BUN/Creatinine Ratio 18 (6-26); Bilirubin,Direct 0.3 mg/dL (0.0-0.2); Bilirubin,Indirect 0.8 mg/dL (0.0-1.0); Bilirubin,Total 1.1 mg/dL (0.3-1.0); Blood Urea Nitrogen 11 mg/dL (8-23); Carbon Dioxide 31 mEq/L (23-29); Chloride 92 mEq/L (98-107); Globulin 2.7 g/dL (2.4-3.5); Glucose 154 mg/dL (70-105); Osmolality,Calculated 276 (280-300); Potassium 4.5 mEq/L (3.5-5.1); Sodium 132 mEq/L (136-145); Total Protein 6.7 g/dL (6.4-8.9); eGFR For African Americans > 60 (> 60); eGFR For Non-African Americans > 60 (> 60)
[2020-12-25 18:01] LABS: Troponin I < 0.03 ng/mL (< 0.04)
[2020-12-25] MEDS ORDERED: Furosemide 40 MG/4 ML VIAL IVP ONE (19:52)
[2020-12-25] MEDS ORDERED: Melatonin 3 MG TABLET PO PRN (22:05)
[2020-12-25] MEDS ORDERED: Naloxone 0.4 MG/ML INJ IVP PRN (22:05)
[2020-12-25] MEDS ORDERED: Ondansetron ODT 4 MG TAB.RAPDIS SL PRN (23:33)
[2020-12-25] MEDS ORDERED: Mag Hydrox/Al Hydrox/Simeth 30 ML UDC PO PRN (23:34)
[2020-12-26] MEDS: Albuterol 2.5 MG/3 ML NEBULIZER IH PRN ×4 (05:24→22:21)
[2020-12-26] MEDS: predniSONE 20 MG TABLET PO SCH ×2 (09:05→17:13)
[2020-12-26] MEDS: cefTRIAXone 2,000 MG in 0.9 % Sodium Chloride Mini Bag 100 ML IVPB SCH (09:05)
[2020-12-26] MEDS: DilTIAZem CD (24hr) 240 MG CAP.ER.24H PO SCH (10:18)
[2020-12-26] MEDS: *HR* Dabigatran 75 MG CAPSULE PO SCH ×2 (10:19→20:21)
[2020-12-26] MEDS: Metoprolol XL (24 HR) Succ 50 MG TAB.ER.24H PO SCH (10:19)
[2020-12-26] MEDS: Furosemide 20 MG TABLET PO SCH ×2 (10:19→17:13)
[2020-12-26] MEDS: Budesonide/Formoterol 160/4.5 1 PUFF INH IH SCH ×2 (10:50→22:09)
[2020-12-26] MEDS: Azithromycin 500 MG in 0.9 % Sodium Chloride 250 ML IVPB SCH (17:13)
[2020-12-27] MEDS: Albuterol 2.5 MG/3 ML NEBULIZER IH PRN ×2 (03:25→09:30)
[2020-12-27] MEDS: predniSONE 20 MG TABLET PO SCH ×2 (08:35→17:24)
[2020-12-27] MEDS: *HR* Dabigatran 75 MG CAPSULE PO SCH ×2 (08:36→20:11)
[2020-12-27] MEDS: Metoprolol XL (24 HR) Succ 50 MG TAB.ER.24H PO SCH (08:36)
[2020-12-27] MEDS: cefTRIAXone 2,000 MG in 0.9 % Sodium Chloride Mini Bag 100 ML IVPB SCH (08:37)
[2020-12-27] MEDS: DilTIAZem CD (24hr) 240 MG CAP.ER.24H PO SCH (08:37)
[2020-12-27] MEDS: Furosemide 20 MG TABLET PO SCH ×2 (08:37→17:25)
[2020-12-27 09:14] LABS: Hematocrit 34.1 % (37.5-50.1); Hemoglobin 11.3 g/dL (12.9-16.9); Mean Corpuscular HGB Conc 33.1 g/dL (31.6-35.5); Mean Corpuscular Hemoglobin 30.4 pg (28.0-33.3); Mean Corpuscular Volume 91.7 fL (83.0-100.0); Platelet Count 314 K/mcL (140-400); Red Blood Count 3.72 M/mcL (4.19-5.50); Red Cell Distribution Width 15.3 % (11.5-14.5); White Blood Count 12.8 K/mcL (4.3-11.1)
[2020-12-27] MEDS: Budesonide/Formoterol 160/4.5 1 PUFF INH IH SCH ×2 (09:30→20:26)
[2020-12-27 09:35] LABS: BUN/Creatinine Ratio 37 (6-26); Blood Urea Nitrogen 19 mg/dL (8-23); Calcium 8.9 mg/dL (8.6-10.3); Carbon Dioxide 33 mEq/L (23-29); Chloride 96 mEq/L (98-107); Glucose 190 mg/dL (70-105); Osmolality,Calculated 285 (280-300); Potassium 4.2 mEq/L (3.5-5.1); Sodium 134 mEq/L (136-145); eGFR For African Americans > 60 (> 60); eGFR For Non-African Americans > 60 (> 60)
[2020-12-27] MEDS: Fluticasone Propionate Nasal 50 MCG/SPRAY BOTTLE NS SCH (12:57)
[2020-12-27] MEDS: Albuterol 2.5 MG/3 ML NEBULIZER IH SCH ×2 (15:46→20:28)
[2020-12-27] MEDS: Azithromycin 500 MG in 0.9 % Sodium Chloride 250 ML IVPB SCH (17:25)
[2020-12-28] MEDS: Albuterol 2.5 MG/3 ML NEBULIZER IH SCH ×6 (00:29→20:11)
[2020-12-28] MEDS: Budesonide/Formoterol 160/4.5 1 PUFF INH IH SCH ×2 (08:01→20:11)
[2020-12-28] MEDS: Tiotropium 10 INH DOSE IH SCH (08:10)
[2020-12-28] MEDS: DilTIAZem CD (24hr) 240 MG CAP.ER.24H PO SCH (08:45)
[2020-12-28] MEDS: Metoprolol XL (24 HR) Succ 50 MG TAB.ER.24H PO SCH (08:45)
[2020-12-28] MEDS: *HR* Dabigatran 75 MG CAPSULE PO SCH ×2 (08:45→20:37)
[2020-12-28] MEDS: predniSONE 20 MG TABLET PO SCH ×2 (08:46→17:38)
[2020-12-28] MEDS: Fluticasone Propionate Nasal 50 MCG/SPRAY BOTTLE NS SCH (08:46)
[2020-12-28] MEDS: Furosemide 20 MG TABLET PO SCH ×2 (08:46→17:38)
[2020-12-28] MEDS: cefTRIAXone 2,000 MG in 0.9 % Sodium Chloride Mini Bag 100 ML IVPB SCH (08:47)
[2020-12-28] MEDS ORDERED: *HR* LORazepam 2 MG/ML VIAL IVP PRN ×3 (09:25)
[2020-12-28] MEDS: Azithromycin 500 MG in 0.9 % Sodium Chloride 250 ML IVPB SCH (17:38)
[2020-12-29] MEDS: Albuterol 2.5 MG/3 ML NEBULIZER IH SCH ×7 (00:28→23:01)
[2020-12-29 07:08] LABS: Basophils # 0.1 K/mcL (0.0-0.2); Basophils % 0.7 %; Hematocrit 35.5 % (37.5-50.1); Hemoglobin 11.7 g/dL (12.9-16.9); Immature Granulocytes % 2.7 % (0-4); Lymphocytes % 25.6 %; Mean Corpuscular Hemoglobin 30.5 pg (28.0-33.3); Mean Corpuscular Volume 92.4 fL (83.0-100.0); Mean Platelet Volume 8.6 fL (9.4-12.4); Monocytes # 0.8 K/mcL (0.0-1.3); Monocytes % 7.1 %; Neutrophils # 7.5 K/mcL (1.6-8.9); Platelet Count 337 K/mcL (140-400); Red Blood Count 3.84 M/mcL (4.19-5.50); Segmented Neutrophils % 63.9 %; White Blood Count 11.7 K/mcL (4.3-11.1)
[2020-12-29 07:28] LABS: BUN/Creatinine Ratio 32 (6-26); Blood Urea Nitrogen 19 mg/dL (8-23); Calcium 9.1 mg/dL (8.6-10.3); Carbon Dioxide 35 mEq/L (23-29); Chloride 94 mEq/L (98-107); Glucose 268 mg/dL (70-105); Osmolality,Calculated 292 (280-300); Potassium 4.4 mEq/L (3.5-5.1); Sodium 135 mEq/L (136-145); eGFR For African Americans > 60 (> 60); eGFR For Non-African Americans > 60 (> 60)
[2020-12-29] MEDS: *HR* Dabigatran 75 MG CAPSULE PO SCH ×2 (08:00→22:06)
[2020-12-29] MEDS: Fluticasone Propionate Nasal 50 MCG/SPRAY BOTTLE NS SCH (08:00)
[2020-12-29] MEDS: Metoprolol XL (24 HR) Succ 50 MG TAB.ER.24H PO SCH (08:01)
[2020-12-29] MEDS: predniSONE 20 MG TABLET PO SCH ×2 (08:01→18:06)
[2020-12-29] MEDS: cefTRIAXone 2,000 MG in 0.9 % Sodium Chloride Mini Bag 100 ML IVPB SCH (08:01)
[2020-12-29] MEDS: Furosemide 20 MG TABLET PO SCH ×2 (08:01→18:06)
[2020-12-29] MEDS: DilTIAZem CD (24hr) 240 MG CAP.ER.24H PO SCH (08:01)
[2020-12-29] MEDS: Budesonide/Formoterol 160/4.5 1 PUFF INH IH SCH ×2 (08:20→19:48)
[2020-12-29] MEDS: Tiotropium 10 INH DOSE IH SCH (08:22)
[2020-12-29] MEDS ORDERED: Dextrose Gel 15 GM/37.5 ML TUBE PO PRN ×2 (08:31)
[2020-12-29] MEDS ORDERED: *HR* Dextrose 50 % in Water (Syg) 50 ML SYRINGE IVP PRN (08:31)
[2020-12-29] MEDS ORDERED: D5% in Water 1,000 ML IVC PRN (08:31)
[2020-12-29] MEDS: Insulin LISPRO 300 UNITS/3 ML VIAL SUBQ SCH ×3 (12:12→22:05)
[2020-12-29] MEDS: Azithromycin 250 MG TABLET PO SCH (12:12)
[2020-12-30] MEDS: Albuterol 2.5 MG/3 ML NEBULIZER IH SCH ×6 (03:01→23:15)
[2020-12-30 07:05] LABS: Basophils % 0.1 %; Eosinophils % 0.1 %; Hematocrit 34.9 % (37.5-50.1); Hemoglobin 11.7 g/dL (12.9-16.9); Immature Granulocytes % 4.3 % (0-4); Lymphocytes # 3.6 K/mcL (0.6-4.6); Lymphocytes % 28.9 %; Mean Corpuscular HGB Conc 33.5 g/dL (31.6-35.5); Mean Corpuscular Hemoglobin 30.5 pg (28.0-33.3); Mean Corpuscular Volume 90.9 fL (83.0-100.0); Mean Platelet Volume 8.7 fL (9.4-12.4); Monocytes # 0.9 K/mcL (0.0-1.3); Monocytes % 7.1 %; Neutrophils # 7.4 K/mcL (1.6-8.9); Platelet Count 351 K/mcL (140-400); Red Blood Count 3.84 M/mcL (4.19-5.50); Red Cell Distribution Width 14.8 % (11.5-14.5); Segmented Neutrophils % 59.5 %; White Blood Count 12.5 K/mcL (4.3-11.1)
[2020-12-30 07:29] LABS: BUN/Creatinine Ratio 33 (6-26); Blood Urea Nitrogen 19 mg/dL (8-23); Calcium 9.1 mg/dL (8.6-10.3); Carbon Dioxide 32 mEq/L (23-29); Chloride 92 mEq/L (98-107); Glucose 188 mg/dL (70-105); Osmolality,Calculated 281 (280-300); Potassium 4.5 mEq/L (3.5-5.1); Sodium 132 mEq/L (136-145); eGFR For African Americans > 60 (> 60); eGFR For Non-African Americans > 60 (> 60)
[2020-12-30] MEDS: Tiotropium 10 INH DOSE IH SCH (08:17)
[2020-12-30] MEDS: Budesonide/Formoterol 160/4.5 1 PUFF INH IH SCH ×2 (08:18→19:55)
[2020-12-30] MEDS: cefTRIAXone 2,000 MG in 0.9 % Sodium Chloride Mini Bag 100 ML IVPB SCH (09:19)
[2020-12-30] MEDS: Insulin LISPRO 300 UNITS/3 ML VIAL SUBQ SCH ×4 (09:22→20:23)
[2020-12-30] MEDS: predniSONE 20 MG TABLET PO SCH (09:25)
[2020-12-30] MEDS: Metoprolol XL (24 HR) Succ 50 MG TAB.ER.24H PO SCH (09:26)
[2020-12-30] MEDS: DilTIAZem CD (24hr) 240 MG CAP.ER.24H PO SCH (09:26)
[2020-12-30] MEDS: *HR* Dabigatran 75 MG CAPSULE PO SCH ×2 (09:26→20:25)
[2020-12-30] MEDS: Furosemide 20 MG TABLET PO SCH ×2 (09:26→17:37)
[2020-12-30] MEDS: Azithromycin 250 MG TABLET PO SCH (09:26)
[2020-12-30] MEDS: Fluticasone Propionate Nasal 50 MCG/SPRAY BOTTLE NS SCH (09:27)
[2020-12-30 09:42] LABS: Platelet Estimate Normal (Normal)
[2020-12-30] MEDS: MethylPREDNISolone 40 MG/ML VIAL IVP SCH ×2 (13:10→17:45)
[2020-12-30] MEDS ORDERED: Furosemide 20 MG/2 ML VIAL IVP ONE (13:58)
[2020-12-31] MEDS: MethylPREDNISolone 40 MG/ML VIAL IVP SCH ×4 (00:41→17:35)
[2020-12-31] MEDS: Albuterol 2.5 MG/3 ML NEBULIZER IH SCH ×6 (03:00→23:09)
[2020-12-31 06:20] LABS: Basophils # 0.1 K/mcL (0.0-0.2); Basophils % 0.7 %; Eosinophils % 0.1 %; Hematocrit 35.2 % (37.5-50.1); Hemoglobin 11.9 g/dL (12.9-16.9); Immature Granulocytes % 4.2 % (0-4); Lymphocytes # 2.1 K/mcL (0.6-4.6); Mean Corpuscular HGB Conc 33.8 g/dL (31.6-35.5); Mean Corpuscular Hemoglobin 30.2 pg (28.0-33.3); Mean Corpuscular Volume 89.3 fL (83.0-100.0); Mean Platelet Volume 8.4 fL (9.4-12.4); Monocytes # 0.2 K/mcL (0.0-1.3); Monocytes % 2.1 %; Neutrophils # 7.2 K/mcL (1.6-8.9); Platelet Count 322 K/mcL (140-400); Red Blood Count 3.94 M/mcL (4.19-5.50); Red Cell Distribution Width 14.6 % (11.5-14.5); Segmented Neutrophils % 71.9 %
[2020-12-31 06:41] LABS: BUN/Creatinine Ratio 38 (6-26); Blood Urea Nitrogen 23 mg/dL (8-23); Calcium 9.1 mg/dL (8.6-10.3); Carbon Dioxide 35 mEq/L (23-29); Chloride 91 mEq/L (98-107); Glucose 289 mg/dL (70-105); Osmolality,Calculated 292 (280-300); Potassium 4.2 mEq/L (3.5-5.1); Sodium 134 mEq/L (136-145); eGFR For African Americans > 60 (> 60); eGFR For Non-African Americans > 60 (> 60)
[2020-12-31] MEDS: Budesonide/Formoterol 160/4.5 1 PUFF INH IH SCH ×2 (08:51→20:03)
[2020-12-31] MEDS: Tiotropium 10 INH DOSE IH SCH (08:51)
[2020-12-31] MEDS: Insulin LISPRO 300 UNITS/3 ML VIAL SUBQ SCH ×3 (09:36→16:58)
[2020-12-31] MEDS: DilTIAZem CD (24hr) 240 MG CAP.ER.24H PO SCH (09:37)
[2020-12-31] MEDS: *HR* Dabigatran 75 MG CAPSULE PO SCH ×2 (09:37→21:07)
[2020-12-31] MEDS: Furosemide 20 MG TABLET PO SCH ×2 (09:37→17:35)
[2020-12-31] MEDS: cefTRIAXone 2,000 MG in 0.9 % Sodium Chloride Mini Bag 100 ML IVPB SCH (09:38)
[2020-12-31] MEDS: Azithromycin 250 MG TABLET PO SCH (09:38)
[2020-12-31] MEDS: Metoprolol XL (24 HR) Succ 50 MG TAB.ER.24H PO SCH (09:39)
[2020-12-31] MEDS ORDERED: *HR* Dextrose 50 % in Water (Syg) 50 ML SYRINGE IVP PRN (10:51)
[2020-12-31] MEDS ORDERED: Dextrose Gel 15 GM/37.5 ML TUBE PO PRN ×2 (10:51)
[2020-12-31] MEDS ORDERED: D5% in Water 1,000 ML IVC PRN (10:51)
[2020-12-31] MEDS: Fluticasone Propionate Nasal 50 MCG/SPRAY BOTTLE NS SCH (12:27)
[2020-12-31] MEDS ORDERED: Insulin LISPRO 300 UNITS/3 ML VIAL SUBQ SCH (21:00)
[2021-01-01] MEDS: MethylPREDNISolone 40 MG/ML VIAL IVP SCH ×2 (00:29→05:41)
[2021-01-01] MEDS: Albuterol 2.5 MG/3 ML NEBULIZER IH SCH ×2 (03:12→07:49)
[2021-01-01 06:29] VITALS: BP 139/80; PULSE 78; TEMP 97.9
[2021-01-01 06:44] LABS: Basophils # 0.1 K/mcL (0.0-0.2); Basophils % 0.5 %; Hematocrit 37.8 % (37.5-50.1); Hemoglobin 12.7 g/dL (12.9-16.9); Immature Granulocytes % 3.2 % (0-4); Lymphocytes % 12.6 %; Mean Corpuscular HGB Conc 33.6 g/dL (31.6-35.5); Mean Corpuscular Hemoglobin 30.2 pg (28.0-33.3); Mean Platelet Volume 8.6 fL (9.4-12.4); Monocytes # 0.5 K/mcL (0.0-1.3); Monocytes % 3.1 %; Neutrophils # 12.7 K/mcL (1.6-8.9); Platelet Count 379 K/mcL (140-400); Red Cell Distribution Width 14.6 % (11.5-14.5); Segmented Neutrophils % 80.6 %; White Blood Count 15.7 K/mcL (4.3-11.1)
[2021-01-01 06:55] LABS: BUN/Creatinine Ratio 43 (6-26); Blood Urea Nitrogen 27 mg/dL (8-23); Calcium 9.1 mg/dL (8.6-10.3); Carbon Dioxide 34 mEq/L (23-29); Chloride 90 mEq/L (98-107); Glucose 322 mg/dL (70-105); Osmolality,Calculated 294 (280-300); Potassium 4.3 mEq/L (3.5-5.1); Sodium 133 mEq/L (136-145); eGFR For African Americans > 60 (> 60); eGFR For Non-African Americans > 60 (> 60)
[2021-01-01 07:55] VITALS: RESP 18
[2021-01-01] MEDS: Insulin LISPRO 300 UNITS/3 ML VIAL SUBQ SCH (09:11)
[2021-01-01] MEDS: Fluticasone Propionate Nasal 50 MCG/SPRAY BOTTLE NS SCH (09:12)
[2021-01-01] MEDS: Azithromycin 250 MG TABLET PO SCH (09:13)
[2021-01-01] MEDS: *HR* Dabigatran 75 MG CAPSULE PO SCH (09:13)
[2021-01-01] MEDS: Metoprolol XL (24 HR) Succ 50 MG TAB.ER.24H PO SCH (09:13)
[2021-01-01] MEDS: DilTIAZem CD (24hr) 240 MG CAP.ER.24H PO SCH (09:14)
[2021-01-01] MEDS: Furosemide 20 MG TABLET PO SCH (09:14)
[2021-01-01] MEDS: cefTRIAXone 2,000 MG in 0.9 % Sodium Chloride Mini Bag 100 ML IVPB SCH (09:14)
[2021-01-01] MEDS: Budesonide/Formoterol 160/4.5 1 PUFF INH IH SCH (09:47)
[2021-01-01] MEDS: Tiotropium 10 INH DOSE IH SCH (09:49)
[2021-01-01 09:53] VITALS: O2SAT 95
== END 2021-01-01 12:30 | disposition home health service (06) | DRG 193 ==
LOC: EMEROOPIK 16:44 → INPPIK 16:44
PROVIDERS: ADMIT Student in an Organized Health Care Education/Training Program; ATTEND Student in an Organized Health Care Education/Training Program

== ENCOUNTER 2021-02-14 00:22 | Observation (INO) ==
[2021-02-14] MEDS ORDERED: methylPREDNISolone 125 MG/2 ML VIAL IVP ONE (00:29)
[2021-02-14] MEDS ORDERED: Ipratropium/Albuterol Neb 3 ML IH ONE (00:29)
[2021-02-14 00:53] LABS: Basophils # 0.1 K/mcL (0.0-0.2); Basophils % 0.5 %; Eosinophils # 0.1 K/mcL (0.0-0.6); Eosinophils % 0.6 %; Hemoglobin 14.3 g/dL (12.9-16.9); Immature Granulocytes % 1.2 % (0-4); Lymphocytes # 3.4 K/mcL (0.6-4.6); Lymphocytes % 19.1 %; Mean Corpuscular Hemoglobin 32.1 pg (28.0-33.3); Mean Corpuscular Volume 94.4 fL (83.0-100.0); Mean Platelet Volume 8.4 fL (9.4-12.4); Monocytes # 1.3 K/mcL (0.0-1.3); Monocytes % 7.1 %; Neutrophils # 12.7 K/mcL (1.6-8.9); Platelet Count 184 K/mcL (140-400); Red Blood Count 4.45 M/mcL (4.19-5.50); Red Cell Distribution Width 16.9 % (11.5-14.5); Segmented Neutrophils % 71.5 %; White Blood Count 17.7 K/mcL (4.3-11.1)
[2021-02-14 01:03] LABS: INR 1.1; Prothrombin Time 11.9 Seconds (9.4-12.1)
[2021-02-14 01:13] LABS: BUN/Creatinine Ratio 22 (6-26); Blood Urea Nitrogen 14 mg/dL (8-23); Calcium 9.1 mg/dL (8.6-10.3); Carbon Dioxide 33 mEq/L (23-29); Chloride 90 mEq/L (98-107); Glucose 240 mg/dL (70-105); Osmolality,Calculated 282 (280-300); Potassium 3.9 mEq/L (3.5-5.1); Sodium 132 mEq/L (136-145); eGFR For African Americans > 60 (> 60); eGFR For Non-African Americans > 60 (> 60)
[2021-02-14 01:15] LABS: ABG Base Excess 6 mEq/L (-2 to 3); ABG HCO3 31 mEq/L (21-27); ABG Oxygen Saturation 93 % (95-98); ABG PCO2 45 mmHg (35-45); ABG PH 7.45 pH Units (7.32-7.45); ABG PO2 64 mmHg (85-104); ABG TCO2 33 mEq/L (20-26)
[2021-02-14 01:19] LABS: D-Dimer < 215 ng/mLFEU (0-500)
[2021-02-14] MEDS ORDERED: Azithromycin 500 MG in 0.9 % Sodium Chloride 250 ML IVPB ONE (01:38)
[2021-02-14] MEDS ORDERED: [UNRECOGNIZED DRUG - OTHER] IVPB ONE ×2 (02:00→03:22)
[2021-02-14] MEDS ORDERED: D5 IVPB ONE ×2 (02:00→03:22)
[2021-02-14] MEDS ORDERED: WATER IVPB ONE ×2 (02:00→03:22)
[2021-02-14] MEDS ORDERED: Fluticasone Propionate Nasal 50 MCG/SPRAY BOTTLE NS PRN (03:22)
[2021-02-14] MEDS ORDERED: Naloxone 0.4 MG/ML INJ IVP PRN (03:22)
[2021-02-14] MEDS: 0.9 % Sodium Chloride 1,000 ML IVC SCH (04:20)
[2021-02-14] MEDS: Ipratropium/Albuterol Neb 3 ML IH SCH ×5 (06:34→20:40)
[2021-02-14] MEDS: Budesonide/Formoterol 160/4.5 1 PUFF INH IH SCH ×2 (08:21→20:40)
[2021-02-14] MEDS: MethylPREDNISolone 40 MG/ML VIAL IVP SCH ×2 (09:55→17:14)
[2021-02-14] MEDS: *HR* Dabigatran 75 MG CAPSULE PO SCH ×2 (09:55→20:45)
[2021-02-14] MEDS: DilTIAZem CD (24hr) 240 MG CAP.ER.24H PO SCH (09:55)
[2021-02-14] MEDS: Furosemide 40 MG TABLET PO SCH (09:55)
[2021-02-14] MEDS: Metoprolol XL (24 HR) Succ 50 MG TAB.ER.24H PO SCH (10:01)
[2021-02-15] MEDS: Ipratropium/Albuterol Neb 3 ML IH SCH ×3 (00:26→08:18)
[2021-02-15] MEDS: MethylPREDNISolone 40 MG/ML VIAL IVP SCH ×2 (00:33→07:57)
[2021-02-15] MEDS: 0.9 % Sodium Chloride 1,000 ML IVC SCH (00:46)
[2021-02-15 07:56] VITALS: BP 148/88; PULSE 83; TEMP 97.1
[2021-02-15] MEDS: *HR* Dabigatran 75 MG CAPSULE PO SCH (07:58)
[2021-02-15] MEDS: Insulin LISPRO 300 UNITS/3 ML VIAL SUBQ SCH ×3 (07:58→11:37)
[2021-02-15] MEDS: Metoprolol XL (24 HR) Succ 50 MG TAB.ER.24H PO SCH (07:58)
[2021-02-15] MEDS: Furosemide 40 MG TABLET PO SCH (07:59)
[2021-02-15] MEDS: DilTIAZem CD (24hr) 240 MG CAP.ER.24H PO SCH (07:59)
[2021-02-15 08:22] VITALS: RESP 18; O2SAT 97
[2021-02-15] MEDS: Budesonide/Formoterol 160/4.5 1 PUFF INH IH SCH (08:22)
[2021-02-15 08:25] LABS: Hematocrit 35.9 % (37.5-50.1); Hemoglobin 12.4 g/dL (12.9-16.9); Mean Corpuscular HGB Conc 34.5 g/dL (31.6-35.5); Mean Corpuscular Hemoglobin 31.9 pg (28.0-33.3); Mean Corpuscular Volume 92.3 fL (83.0-100.0); Mean Platelet Volume 9.4 fL (9.4-12.4); Platelet Count 198 K/mcL (140-400); Red Blood Count 3.89 M/mcL (4.19-5.50); Red Cell Distribution Width 15.9 % (11.5-14.5); White Blood Count 10.9 K/mcL (4.3-11.1)
[2021-02-15 08:48] LABS: BUN/Creatinine Ratio 35 (6-26); Blood Urea Nitrogen 24 mg/dL (8-23); Carbon Dioxide 30 mEq/L (23-29); Chloride 93 mEq/L (98-107); Glucose 504 mg/dL (70-105); Osmolality,Calculated 303 (280-300); Potassium 4.1 mEq/L (3.5-5.1); Sodium 133 mEq/L (136-145); eGFR For African Americans > 60 (> 60); eGFR For Non-African Americans > 60 (> 60)
[2021-02-15] MEDS ORDERED: Azithromycin 500 MG in 0.9 % Sodium Chloride 250 ML IVPB SCH (09:00)
[2021-02-15] MEDS ORDERED: cefTRIAXone 1,000 MG in 0.9 % Sodium Chloride Mini Bag 100 ML IVPB SCH (09:00)
[2021-02-15] MEDS ORDERED: Insulin LISPRO 300 UNITS/3 ML VIAL SUBQ SCH (21:00)
== END 2021-02-15 13:00 | disposition home health service (06) ==
LOC: INPPIK 00:22 → EMEROOPIK 00:22 → INPPIK 03:44
PROVIDERS: ADMIT Family Medicine; ATTEND Family Medicine